=== PATIENT | female | born 1950 | race Caucasian/White ===

== ENCOUNTER 2020-03-20 06:30 | Day surgery (SDC) | payer MEDICARE, OTHER ==
[~2020-03-20] VITALS: Ht 160 cm; Wt 47.6 kg
[~2020-03-20 06:30] MED LIST: ACAI BERRY500 MG PO; B COMPLETE1 EACH PO; CO Q-10100 MG PO; FLAXSEED1000 MG PO; KEFLEX250 MG PO; MAGNESIUM27 MG PO; MIRALAX17 GM PO; NORCO 5-325 TA1 EACH PO; OMEPRAZOLE20 MG PO; POTASSIUM99 M1 PO; VITAMIN D400 UNIT PO
--- NOTE | 2020-03-20 08:05 | NUR ---
03/20/20 0805 Keisha Baltazar 0800 PATIENT ARRIVES TO PACU RESTING WITH EYES CLOSED. RESP EVEN AND UNLABORED, NC TURNED OFF ON ARRIVAL TO PACU. ROOM AIR SATS 100%. PATIENT DENIES PAIN OR NAUSEA.
--- NOTE | 2020-03-20 12:20 | OR ---
[facility] [address], [place] [address] Signed DATE OF OPERATION: 03/20/2020 SURGEON: Schuyler Carlisle MD PREOPERATIVE DIAGNOSES: 1. Lifelong constipation. 2. Mother with colon cancer, age 50. 3. Personal history of colonic polyps, age 49. 4. Guaiac-positive stool. POSTOPERATIVE DIAGNOSES: 1. Rmlwcrhc-dk-zgeexk melanosis coli. 2. Long redundant colon. PROCEDURE: Colonoscopy with random cold biopsies to distal right colon. INDICATIONS: Pedro is a 69-year-old female, who asked to see me for followup colonoscopy. 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 She is on a number of different laxative regimens throughout her life. To her knowledge, she has never been evaluated formally for colonic inertia. She told me her mother was diagnosed with colon cancer at age 50. Pedro herself had a colonoscopy at age 49 with colonic polyps removed. She came back 10 years later, had a negative colonoscopy. She returns now for a followup colonoscopy. In the office, she told me she using Acai [place] Colon Cleanse along with MiraLAX and flaxseed oil to help with her bowel movements. She said Benefiber and Citrucel really do not seem to help. She also has guaiac-positive stool. In the office, I gave her a pamphlet on colonoscopy. We looked at that together along with the risks including, but not limited to gas bloating, crampy abdominal pain, bleeding, perforation, requiring surgery, and missed diagnosis. We also discussed the need for IV conscious sedation. She had expressed understanding and wished to proceed. PROCEDURE NOTE: Pedro was taken into our endoscopy suite and placed in the left lateral decubitus position. She was given IV sedation with 5 mg of Versed and 100 mcg of fentanyl to cover the case. A digital rectal exam was performed and this was unremarkable. The adult colonoscope was introduced and advanced under direct visualization of camera. She has a very long redundant colon. She clearly has a muknlhkk-pg-urhkiv melanosis coli. They became more more dark as we traveled into the proximal colon. Took additional sedation and rolling Pedro on the table and using abdominal compression to get the scope Electronically Signed By: SCHUYLER CARLISLE MD 03/20/20 1220 PATIENT NAME: PEDRO RIVERA OPERATIVE REPORT DATE OF : 52 REPORT #: [id number] PHYSICIAN: SCHUYLER CARLISLE MD PCP: ALLEN LOPEZ DO REPORT IS CONFIDENTIAL AND NOT TO BE RELEASED WITHOUT AUTHORIZATION [facility] [address], [place] [address] Signed around the splenic flexure. Finally, the hepatic flexure as well. We were looking down the right colon, but never see into the cecum itself. After multiple attempts, then we slowly withdrew the scope, it had continued to buckle. We simply could not advance any farther. Multiple pictures were taken throughout for photodocumentation. We took several random cold biopsies for documentation of the melanosis coli. The scope had been retroflexed in the rectum and there was no additional pathology noted above the anal canal. Overall, Pedro tolerated the procedure well. After this, the gas was suctioned out and the colonoscope removed. RECOMMENDATIONS: I will see Pedro back in my office in 7 to 14 days to review her results. She should consider a barium enema to evaluate the right colon. She needs to consider melanosis coli quite significantly. Schuyler Carlisle MD ALB/MODL /[id number] cc: MD Allen Sotomayor DO Copies: SCHUYLER CARLISLE MD, ARIAN DO ~ Electronically Signed By: SCHUYLER CARLISLE MD 03/20/20 1220 PATIENT NAME: PEDRO RIVERA OPERATIVE REPORT DATE OF : 52 REPORT #: [id number] PHYSICIAN: SCHUYLER CARLISLE MD PCP: ALLEN LOPEZ DO REPORT IS CONFIDENTIAL AND NOT TO BE RELEASED WITHOUT AUTHORIZATION
== END 2020-03-20 08:55 | disposition home or self-care (01) ==
LOC: OPS 06:30 → DS 06:30 → OPS 06:45 → DS 06:45 → OPS 08:55
PROVIDERS: Colon & Rectal Surgery
PROC: 0DBE8ZX Excision of Large Intestine, Via Natural or Artificial Opening Endoscopic, Diagnostic (ICD-10-PCS; principal; 2020-03-20 06:45)
DX: K63.89 Other specified diseases of intestine (principal); Q43.8 Other specified congenital malformations of intestine; K59.09 Other constipation; M85.80 Other specified disorders of bone density and structure, unspecified site; Z86.010 Personal history of colon polyps; Z80.0 Family history of malignant neoplasm of digestive organs; Z79.899 Other long term (current) drug therapy; Z98.890 Other specified postprocedural states
CPT/HCPCS: 88305; 99153; G0500; J2250; J3010; J7121